=== PATIENT | female | born 1985 | race Caucasian/White ===

== ENCOUNTER → 2019-10-01 | Day surgery (SDC) | payer OTHER ==
[~2019-10-01] MED LIST: FLONASE 0.05%50 MCG NARES; NORCO 5-325 TA1 EAC1 PO; PAIN RELIEF325 MG PO; VITAMIN B-121000 MC2 PO; VITAMIN C250 MG PO; VITAMIN D350 MC4 PO; ZYRTEC10 M5
[2019-10-01 10:25] LABS: HEMATOCRIT 42.6 % (37.0-47.0); HEMOGLOBIN 14.6 gm/dL (12.0-15.0); MCH 31.6 pg (26.0-34.0); MCHC 34.3 g/dL (28.0-37.0); MCV 92.2 fL (80.0-100.0); MPV 8.7 fl. (7.2-11.1); RBC 4.62 mil/uL (4.20-5.00); WBC 4.8 thou/uL (4.0-11.0)
[2019-10-01 11:17] LABS: CALCIUM 9.1 mg/dL (8.5-10.1); CREATININE 0.8 mg/dL (0.6-1.3)
--- NOTE | 2019-10-08 13:17 | OP ---
[facility] [address] [place] [address] OPERATIVE REPORT Name: AMANDA DURON Room: [facility]#: [id number] Admission: 10/01/19 Attend Phys: Richmond Romero Discharge: Date of : 85 Report #: [id number] THIS REPORT FOR: //name// cc: BHAKTI JARA APRN, ASHLEY APRN ~ THIS REPORT FOR: //name// CC: BHAKTI Romero DATE OF SERVICE: 10/01/2019 PREOPERATIVE DIAGNOSIS: Right lower quadrant abdominal pain. POSTOPERATIVE DIAGNOSIS: Right lower quadrant abdominal pain. OPERATION: Diagnostic laparoscopy with laparoscopic lysis of adhesions. SURGEON: Richmond Romero MD ANESTHESIA: General. ESTIMATED BLOOD LOSS: Minimal. SPECIMEN: None. DESCRIPTION OF PROCEDURE: After informed consent was obtained, the patient was brought to the operating room and placed supine. SCDs were placed and working, preoperative antibiotics were administered, general anesthesia was induced. The abdomen was prepped and draped in the usual sterile fashion. A 5 mm incision was made in the left upper quadrant. A 5 mm trocar was placed under direct vision. Pneumoperitoneum was established. A left-sided 5 mm port and a left lower quadrant 5 mm port were placed under direct vision. Exploration was undertaken. The uterus appeared normal. The right lower quadrant was examined. There was no inguinal hernia. The omentum appeared normal. The liver appeared normal. The stomach appeared normal. The ascending colon was somewhat adhesed to the abdominal side wall. There were loose adhesions. I took these down using the cautery. Pictures were taken to document this. There was good hemostasis. The small bowel appeared normal. The ports were then removed under direct vision. The skin was closed with 4-0 Monocryl. Incisions were sealed with Dermabond. COMPLICATIONS: [place] [address] OPERATIVE REPORT Name: JADENREBECAEDDYAMANDA Kaylen Room: [facility]#: [id number] Admission: 10/01/19 Attend Phys: Richmond Romero Discharge: Date of : 85 Report #: [id number] DISPOSITION: The patient was taken to recovery in satisfactory condition. <ELECTRONICALLY SIGNED> By: Richmond Romero MD 10/08/19 1317 [id number] [id number] Romero MD /nt
== END | disposition home or self-care (01) ==
LOC: M.SUR 09:40
PROVIDERS: ATTEND Surgery
DX: R10.31 Right lower quadrant pain (principal); K66.0 Peritoneal adhesions (postprocedural) (postinfection); Z11.59 Encounter for screening for other viral diseases; Z88.8 Allergy status to other drugs, medicaments and biological substances